=== PATIENT | female | born 1990 | race African-American/Black ===

== ENCOUNTER 2016-07-09 07:13 | Day surgery (SDC) | payer OTHER ==
[~2016-07-09] VITALS: Ht 162.6 cm; Wt 61.6 kg
[~2016-07-09 07:13] MED LIST: BACTRIM,SEPT1 TABLET PO; ENDOCET 5-3251 EACH PO; TYLENOL REGULA325 MG PO; ZANTAC150 MG PO; ZOFRAN4 MG PO
[2016-07-09 07:37] VITALS: BP 113/73
[2016-07-09] MEDS ORDERED: MOTRIN600 MG PO (09:25)
[2016-07-09 11:30] VITALS: BP 126/85
[2016-07-09 12:15] VITALS: BP 113/74
== END 2016-07-09 12:15 | disposition home or self-care (01) ==
LOC: SDC 07:13
DX: T83.89XA Other specified complication of genitourinary prosthetic devices, implants and grafts, initial encounter (principal); Z30.433 Encounter for removal and reinsertion of intrauterine contraceptive device; K21.9 Gastro-esophageal reflux disease without esophagitis; Z83.3 Family history of diabetes mellitus; Z80.0 Family history of malignant neoplasm of digestive organs; Z91.040 Latex allergy status; Y84.8 Other medical procedures as the cause of abnormal reaction of the patient, or of later complication, without mention of misadventure at the time of the procedure
CPT/HCPCS: J0131; J1100; J1885; J2405; J3010